=== PATIENT | male | born 1955 | race Caucasian/White ===

== ENCOUNTER 2016-07-30 15:12 | Emergency (ER) | payer BC ==
--- NOTE | 2016-07-30 16:06 | RAD ---
INDICATION: Right lower leg and ankle pain COMPARISON: None TECHNIQUE: AP, lateral, and oblique views were obtained. FINDINGS: There is no acute fracture or dislocation. There is minor widening of the ankle mortise medially with minor tilting of the talus There is mild medial soft tissue swelling. IMPRESSION: NO ACUTE FRACTURE. SOFT TISSUE SWELLING. MILD WIDENING OF THE MEDIAL ANKLE MORTISE
--- NOTE | 2016-07-30 16:07 | RAD ---
INDICATION: Right lower leg injury COMPARISON: None TECHNIQUE: AP and lateral views were obtained. FINDINGS: There is a nondisplaced oblique fracture of the proximal fibular diaphysis. There are no other fractures. The soft tissues are intact. IMPRESSION: PROXIMAL FIBULAR FRACTURE.
[2016-07-30] MEDS ORDERED: HYDROcodone/ACETAMIN 5-325 MG* 1 TAB PO ONE (16:16)
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
[2016-07-30 17:47] VITALS: BP 110/73
== END 2016-07-30 17:45 | disposition home or self-care (01) ==
LOC: UCEAST 15:12
DX: S82.491A Other fracture of shaft of right fibula, initial encounter for closed fracture (principal); W31.89XA Contact with other specified machinery, initial encounter
CPT/HCPCS: 99202; G0463

== ENCOUNTER → 2016-08-08 06:17 | Day surgery (SDC) | payer BC ==
[~2016-08-08 06:17] MED LIST: Atracurium* 10 MG/ML 10 ML VIAL ONE; Buffered Lidocaine 1% SYRIN* 3 ML/SYR SYRINGE INTRADERM ONE; Bupivacaine 0.5% W/EPI SDV* 30 ML VIAL ONE; Dexamethasone IV* 4 MG/ML 1 ML (4 MG) IV SLOW PU ONE; Dexamethasone IV* 4 MG/ML 1 ML (4 MG) ONE; DiMENhydriNATE IV* 50 MG/ML VIAL IV PUSH PRN; Famotidine IV* 10 MG/ML 2 ML (20 mg) IV ONE; Famotidine IV* 10 MG/ML 2 ML (20 mg) ONE; HYDROmorphone* 1 MG/ML 1 ML SYR IV PRN; Ketorolac INJ* 30 MG/ML 1 ML VIAL ONE; Lidocaine 2% PF * 5 ML VIAL ONE; Midazolam* 1 MG/ML 5 ML VIAL (5 MG) ONE; Ondansetron INJ* 2 MG/ML VIAL IV PRN; Ondansetron INJ* 2 MG/ML VIAL ONE; Propofol* 10 MG/ML 20 ML BTL IV PUSH ONE; ceFAZolin 2 GM PREMIX(*) 2 GM/50 ML BAG IVPB ONE; fentaNYL* 50 MCG/ML 2 ML VIAL (100 MCG VIAL) IV PRN; fentaNYL* 50 MCG/ML 5 ML VIAL (250 MCG VIAL) ONE; oxyCODONE/Acetamin 5/325 MG* TAB ONE; oxyCODONE/Acetamin 5/325 MG* TAB PO PRN
--- NOTE | 2016-08-08 09:27 | RAD ---
INDICATION: RIGHT ankle ORIF. Maisonneuve injury pattern. COMPARISON: July 31, 2016 TECHNIQUE: 85 seconds fluoroscopy. FINDINGS: Spot images document 2 screws traversing the distal tibia fibula syndesmosis with resulting anatomic alignment at the ankle mortise. IMPRESSION: Procedural fluoroscopy. CPT II Codes: 6045F
[2016-08-08 10:55] VITALS: BP 145/69
--- NOTE | 2016-08-08 12:11 | OP ---
OPERATIVE REPORT: DATE OF OPERATION: 08/08/16 DATE OF : 59 SURGEON: Jose Alejandro Ordonez MD MERCHANDISING SPECIALIST: YULISA Garcia ANESTHESIOLOGIST: Dr. Jose Ovalles. ANESTHESIA: General anesthesia, local anesthesia. PRE-OPERATIVE DIAGNOSIS: Right ankle Maisonneuve fracture, unstable syndesmosis. POST-OPERATIVE DIAGNOSIS: Right ankle Maisonneuve fracture, unstable syndesmosis. OPERATIVE PROCEDURE: Open reduction internal fixation, right ankle syndesmosis. ANTIBIOSIS: 2 g Ancef IV. IV FLUIDS: 900 cc crystalloid. TOURNIQUET TIME: 57 minutes at 300 mmHg. COMPLICATIONS: None. ESTIMATED BLOOD LOSS: Minimal. SPECIMEN: None. IMPLANTS: Two Synthes fully threaded 3.5 mm screws. INDICATIONS FOR PROCEDURE: The patient is a 61-year-old man, a ya, who sustained an injury 9 da ys prior to the procedure on 07/30/16 when he slipped from a tractor while dismounting and twisted h is right ankle and lower leg. The patient instantly had pain and swelling. The patient went to Urgent Care where x-rays diagnosed him with a minimally displaced right proximal fibula fracture. However, there was some asymmetry noted, subtle on right ankle x-ray films. The patient complained of right ankle pain. The patient was referred to Orthopedic Surgery. In the office, the patient had tenderness to palpation at the proximal fibula, but severe tenderness to palpation along the length of the syndesmosis. He also had severe tenderness to palpation about the deltoid ligament medially, severe. He had some mild tenderness to palpation about the ATFL and CFL ligaments laterally. In the office, we did gravity stress views of bilateral ankles and they showed significant medial cl ear space widening of 19.8 mm as well as increased diastasis between tibia and fibula and decreased tibia-fibula overlap. The patient opted for surgical management. DESCRIPTION OF PROCEDURE: Preoperative written consent. Operative extremity was marked in preopera tive holding. I reviewed again the benefits, risks, and potential complications of the procedure. We discussed that we would be removing these screws in a second procedure, operative. The patient was taken back to the operating room and placed supine on operating room table. The pat ient was sedated and intubated. A bump was placed under the right lower extremity and a bone foam p illow was placed under the right lower extremity. C-arm was brought in to confirm that it could obt ain good images. C- arm was brought out. The right lower extremity was prepped and draped. Surgic al time-out was performed. Esmarch was applied and the tourniquet was elevated to 300 mmHg. A late ral ankle incision was made, starting 1 cm proximal to the tibiotalar joint level and moving approxi mately 4 cm. I incised through skin with a 15 blade, then changed blades and incised through the [place] perficial subcutaneous tissue with a deep #15 blade. I then used spread dissection to clear off the fibula. I then used a deep #15 blade to clear off and identify the anterior and posterior aspect o f the fibula at this level while respecting the periosteum. C-arm was brought in. I identified a le maris 2 cm proximal to the tibiotalar joint on the fibula. I then drilled with a 2.5 mm drill from th e fibula across to the tibia and roughly at a 30- degree angle posterior to anterior. Careful atten tion was made to make the drill bit parallel to the tibiotalar joint. I confirmed on a lateral imag e that the distal tip of the drill bit was central on the tibia. It was just anterior to the mid sa gittal point. As I drilled, there was some diastasis of the tibia and fibula, so I decided that I n eed to use a reduction clamp between the 2 bones. Therefore, I made a small longitudinal poke-hole o kaykay the mid sagittal point of the tibia and inserted a bone clamp between the tibia and the fibula, maintaining a reduction. Both AP and mortise views showed the syndesmosis well reduced. I then ret urned to drilling the fibula and tibia. Appropriate location of the drill bit was confirmed, measur ed, and then placed a 3.5 mm fully threaded screw. My preference was to go 4 cortices or just shy of 4 cortices given the patient's occupation of [employer] and his increased likelihood of breaking hardware, so that the screw tip being close to the media l cortex of the tibia would facilitate easier broken screw removal. I placed the screw as I had bree lled with my dyer assistant holding the ankle in a fully dorsiflexed position. I was careful not to over - reduce the syndesmosis with the screw. I then moved 2 cm proximal to the first screw that was rufina dolores and then drilled and placed a second 3.5 mm fully threaded screw. I obtained final 3 images of the ankle and then final external rotation stress view and cotton test stress view that confirmed th e stability of the syndesmosis and the appropriateness of the reduction. Irrigation of lateral inci regina and medial poke-hole. Closure of the deep fascia laterally with figure-of- eight stitches usin g Vicryl 2-0 suture. Closure of subcutaneous tissue laterally with buried simple stitches using Bruno ryl 3-0 suture. Closure of the skin laterally with a running stitch in the skin using nylon 4-0 sut ure and closure of the skin medially with a [id number] stitch using nylon 4-0 suture. Xeroform , 4 x 4's, sterile Webril. Tourniquet was dropped. More Webril. A posterior splint with a sugar-t olile was applied. The patient was awakened and extubated and brought to the PACU. DISPOSITION: The patient will be discharged home when medically stable. The patient will receive P ercocet, Keflex, and aspirin postoperatively and will follow up with me in 10 to 14 days postoperati hien. [id number]/[facility] #: [id number]
== END | disposition home or self-care (01) ==
LOC: OR 06:17
PROVIDERS: ATTEND Orthopaedic Surgery
DX: S82.861A Displaced Maisonneuve's fracture of right leg, initial encounter for closed fracture (principal); W30.89XA Contact with other specified agricultural machinery, initial encounter; Y92.73 Farm field as the place of occurrence of the external cause
CPT/HCPCS: 76001; A9270-GY; C1713; J0690; J1100; J1885; J2250; J2405; J2704; J3010

== ENCOUNTER 2016-11-14 07:11 | Day surgery (SDC) | payer BC ==
[~2016-11-14 07:11] MED LIST changes: -Atracurium* 10 MG/ML 10 ML VIAL ONE; +Buffered Lidocaine 0.9% SYRIN* 5 ML/SYR SYRINGE INTRADERM ONE; -Buffered Lidocaine 1% SYRIN* 3 ML/SYR SYRINGE INTRADERM ONE; -Bupivacaine 0.5% W/EPI SDV* 30 ML VIAL ONE; -Dexamethasone IV* 4 MG/ML 1 ML (4 MG) ONE; -DiMENhydriNATE IV* 50 MG/ML VIAL IV PUSH PRN; -Famotidine IV* 10 MG/ML 2 ML (20 mg) ONE; -HYDROmorphone* 1 MG/ML 1 ML SYR IV PRN; -Ketorolac INJ* 30 MG/ML 1 ML VIAL ONE; -Lidocaine 2% PF * 5 ML VIAL ONE; -Midazolam* 1 MG/ML 5 ML VIAL (5 MG) ONE; -Ondansetron INJ* 2 MG/ML VIAL IV PRN; -Ondansetron INJ* 2 MG/ML VIAL ONE; -Propofol* 10 MG/ML 20 ML BTL IV PUSH ONE; -ceFAZolin 2 GM PREMIX(*) 2 GM/50 ML BAG IVPB ONE; -fentaNYL* 50 MCG/ML 2 ML VIAL (100 MCG VIAL) IV PRN; -fentaNYL* 50 MCG/ML 5 ML VIAL (250 MCG VIAL) ONE; -oxyCODONE/Acetamin 5/325 MG* TAB ONE; -oxyCODONE/Acetamin 5/325 MG* TAB PO PRN
[2016-11-14] MEDS ORDERED: Dexamethasone IV* 4 MG/ML 1 ML (4 MG) ONE (07:13)
[2016-11-14] MEDS ORDERED: Famotidine IV* 10 MG/ML 2 ML (20 mg) ONE (07:13)
[2016-11-14] MEDS ORDERED: ceFAZolin 2 GM PREMIX(*) 2 GM/50 ML BAG IVPB ONE (07:13)
[2016-11-14] MEDS ORDERED: Midazolam* 1 MG/ML 5 ML VIAL (5 MG) ONE (08:13)
[2016-11-14] MEDS ORDERED: fentaNYL* 50 MCG/ML 2 ML VIAL (100 MCG VIAL) ONE (08:13)
[2016-11-14] MEDS ORDERED: HYDROcodone/ACETAMIN 5-325 MG* 1 TAB PO PRN (08:14)
[2016-11-14] MEDS ORDERED: fentaNYL* 50 MCG/ML 2 ML VIAL (100 MCG VIAL) IV PRN (08:14)
[2016-11-14] MEDS ORDERED: Ketorolac INJ* 30 MG/ML 1 ML VIAL IV PRN (08:14)
[2016-11-14] MEDS ORDERED: oxyCODONE/Acetamin 5/325 MG* TAB PO PRN (08:14)
[2016-11-14] MEDS ORDERED: PROCHLORPERAZINE INJ 5 MG/ML 2 ML VIAL IV PRN (08:14)
[2016-11-14] MEDS ORDERED: Propofol* 10 MG/ML 20 ML BTL IV PUSH ONE (08:35)
[2016-11-14] MEDS ORDERED: Lidocaine 2% PF * 5 ML VIAL ONE (08:35)
[2016-11-14] MEDS ORDERED: Bupivacaine 0.5% W/EPI SDV* 10 ML VIAL INJ ONE (08:50)
[2016-11-14] MEDS ORDERED: Ondansetron INJ* 2 MG/ML VIAL ONE (08:51)
--- NOTE | 2016-11-14 10:48 | RAD ---
INDICATION: Removal of transsyndesmotic screws from the RIGHT ankle. COMPARISON: October 20, 2016 radiographs. TECHNIQUE: 76.9 seconds fluoroscopy. FINDINGS: Spot images document removal of the transverse syndesmotic screws. Congruent ankle mortise. IMPRESSION: Procedural fluoroscopy. CPT II Codes: 6045F
[2016-11-14 11:38] VITALS: BP 114/67
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
== END 2016-11-14 11:38 | disposition home or self-care (01) ==
LOC: OR 07:11
PROVIDERS: ATTEND Orthopaedic Surgery
DX: T84.213A Breakdown (mechanical) of internal fixation device of bones of foot and toes, initial encounter (principal); Y83.1 Surgical operation with implant of artificial internal device as the cause of abnormal reaction of the patient, or of later complication, without mention of misadventure at the time of the procedure
CPT/HCPCS: 76001; 88300; J0690; J1100; J2250; J2405; J2704; J3010